=== PATIENT | female | born 1990 | race African-American/Black ===

== ENCOUNTER 2017-11-15 15:33 | Emergency (ER) | payer OTHER ==
[2017-11-15 18:37] LABS: ABNORMAL IP MESSAGE 1; HEMATOCRIT 24.9 % (37.0-47.0); IMMATURE GRANS #M 0.02 10^3/ul; IMMATURE GRANS % (M) 0.2 %; MEAN CORPUSCULAR HEMOGLOBIN 16.7 pg (29.0-33.0); MEAN CORPUSCULAR HGB CONC 27.7 g/dl (32.0-37.0); MEAN CORPUSCULAR VOLUME 60.3 fl (82.0-101.0); MEAN PLATELET VOLUME 8.1 fl (7.4-10.4); PLATELET COUNT 604 10^3/UL (140-415); RED BLOOD COUNT 4.13 10^6/ul (4.20-5.40); RED CELL DISTRIBUTION WIDTH 23.4 % (11.5-14.5)
[2017-11-15 18:37] LABS: WHITE BLOOD COUNT 9.7 10^3/ul (4.8-10.8)
[2017-11-15 18:41] LABS: ADD MAN DIFF? YES; HEMOGLOBIN 6.9 g/dl (12.0-16.0); POSITIVE DIFF @See below
[2017-11-15 18:42] LABS: ADD UMIC YES; UR ASCORBIC ACID NEGATIVE (NEGATIVE); UR BACTERIA FEW /HPF (NONE SEEN); UR BILIRUBIN (Dip) NEGATIVE (NEGATIVE); UR BLOOD (Dip) NEGATIVE (NEGATIVE); UR CLARITY SLIGHTLY CLOUDY (CLEAR); UR COLOR YELLOW (YELLOW); UR GLUCOSE (Dip) NEGATIVE (NEGATIVE); UR KETONES (Dip) NEGATIVE (NEGATIVE); UR LEUKOCYTE ESTERASE (Dip) NEGATIVE Leu/ul (NEGATIVE); UR MUCUS FEW /HPF (NONE SEEN); UR NITRITE (Dip) NEGATIVE (NEGATIVE); UR RBC 1 /HPF (0-5); UR SPECIFIC GRAVITY (Dip) 1.017 (1.003-1.030); UR SQUAMOUS EPITHELIAL CELL FEW /HPF (FEW); UR TOTAL PROTEIN (Dip) 1+ mg/dl (NEGATIVE); UR UROBILINOGEN (Dip) 1+ mg/dL (NEGATIVE); UR WBC 1 /HPF (0-5)
[2017-11-15] MEDS: SOD CHLORIDE 0.9% 1,000 ML IV (18:46)
[2017-11-15] MEDS: MECLIZINE 12.5 MG TAB PO (18:46)
[2017-11-15 19:06] LABS: INR 0.99; PROTIME 13.2 Sec (11.9-14.9)
[2017-11-15 19:09] LABS: ALBUMIN/GLOBULIN RATIO 1.28; ANION GAP 16 (8-16); BILIRUBIN,TOTAL 0.3 mg/dl (0.2-1.3)
[2017-11-15 19:10] LABS: ALANINE AMINOTRANSFERASE 23 IU/L (13-69); ALKALINE PHOSPHATASE 68 IU/L (42-121); ASPARTATE AMINO TRANSFERASE 30 IU/L (15-46); BILIRUBIN,INDIRECT 0.3 mg/dl (0-1.1); BLOOD UREA NITROGEN 11 mg/dl (7-20); CALCIUM 9.9 mg/dl (8.4-10.2); CARBON DIOXIDE 22 mmol/L (21-31); CHLORIDE 106 mmol/L (97-110); CREATININE 0.64 mg/dl (0.44-1.00); GLUCOSE 86 mg/dl (70-220); POTASSIUM 4.1 mmol/L (3.5-5.1); SODIUM 140 mmol/L (135-144); TOTAL PROTEIN 8.9 g/dl (6.1-8.1)
[2017-11-15 19:20] LABS: TROPONIN-I < 0.010 ng/ml (0.000-0.120)
[2017-11-15 19:53] LABS: ANISOCYTOSIS 2+ (0-0); EOSINOPHILS % (M) 3 % (0-7); GIANT THROMBO% (M) 1 % (0-0); HYPOCHROMASIA 2+ (0-0); LYMPHOCYTES #M 2.5 10^3/ul (0.8-2.9); LYMPHOCYTES % (M) 26 % (15-51); MICROCYTOSIS 2+ (0-0); MONOCYTE #M 0.3 10^3/ul (0.3-0.9); MONOCYTES % (M) 4 % (0-11); PLATELET ESTIMATE INCREASED; POIKILOCYTOSIS 1+ (0-0); SEGMENTED NEUTROPHILS (M) % 67 % (39-77); SMUDGE%M 11 % (0-0); TEAR DROP CELLS 1+ (0-0)
[2017-11-15 19:59] LABS: PARTIAL THROMBOPLASTIN TIME 21.3 Sec (25.0-35.0)
[2017-11-15] MEDS ORDERED: LORAZEPAM 2 MG INJ (21:15)
[2017-11-15] MEDS: LORAZEPAM 2 MG INJ IV (21:18)
[2017-11-15 22:05] LABS: IMMEDIATE SPIN CROSSMATCH 1 4
[2017-11-15] MEDS: ACETAMINOPHEN 500 MG TAB PO (22:27)
[2017-11-15] MEDS: DIPHENHYDRAMINE 25 MG CAP PO (22:27)
[2017-11-15 23:34] LABS: ADD MAN DIFF? NO
[2017-11-15 23:37] LABS: WHITE BLOOD COUNT 8.8 10^3/ul (4.8-10.8)
[2017-11-15 23:37] LABS: ABNORMAL IP MESSAGE 1; BASOPHILS % 0.3 % (0.0-2.0); EOSINOPHILS # 0.2 10^3/ul (0.0-0.5); EOSINOPHILS % 2.6 % (0.0-7.0); HEMATOCRIT 25.8 % (37.0-47.0); HEMOGLOBIN 7.4 g/dl (12.0-16.0); IMMATURE GRANS #M 0.01 10^3/ul; IMMATURE GRANS % (M) 0.1 %; LYMPHOCYTES # 2.5 10^3/ul (0.8-2.9); MEAN CORPUSCULAR HEMOGLOBIN 18.1 pg (29.0-33.0); MEAN CORPUSCULAR HGB CONC 28.7 g/dl (32.0-37.0); MEAN CORPUSCULAR VOLUME 63.1 fl (82.0-101.0); MEAN PLATELET VOLUME 7.9 fl (7.4-10.4); MONOCYTE # 0.9 10^3/ul (0.3-0.9); MONOCYTES % 10.4 % (0.0-11.0); NEUTROPHIL # 5.2 10^3/ul (1.6-7.5); NEUTROPHILS % 58.6 % (39.0-77.0); PLATELET COUNT 490 10^3/UL (140-415); RED BLOOD COUNT 4.09 10^6/ul (4.20-5.40); RED CELL DISTRIBUTION WIDTH 26.3 % (11.5-14.5)
[2017-11-15 23:46] LABS: POSITIVE DIFF @See below
== END 2017-11-16 01:05 | disposition home or self-care (01) ==
LOC: E/R 11-16 01:05 → FTE 15:33
PROVIDERS: Neurological Surgery
DX: D64.9 Anemia, unspecified (principal); F17.210 Nicotine dependence, cigarettes, uncomplicated; R07.9 Chest pain, unspecified
CPT/HCPCS: 36430; 80053; 81001; 81025; 84484; 85025; 85610; 85730; 86850; 86900; 86901; 86920; 93005; 96374; 99284-25

== ENCOUNTER 2018-01-30 10:38 | Emergency (ER) | payer OTHER | END 2018-01-30 11:37 | disposition home or self-care (01) | LOC: E/R 10:38 | DX: T43.591A Poisoning by other antipsychotics and neuroleptics, accidental (unintentional), initial encounter (principal); R40.2142 Coma scale, eyes open, spontaneous, at arrival to emergency department; R40.2252 Coma scale, best verbal response, oriented, at arrival to emergency department; R40.2362 Coma scale, best motor response, obeys commands, at arrival to emergency department; Z87.891 Personal history of nicotine dependence | CPT/HCPCS: 93005; 99283-25 ==